=== PATIENT | male | born 1955 | race Caucasian/White ===

== ENCOUNTER 2024-02-21 16:50 | Emergency (ER) | payer OTHER, MEDICARE | END 2024-02-21 17:52 | disposition home or self-care (01) | LOC: JP.ED 16:50 | DX: S46.911A Strain of unspecified muscle, fascia and tendon at shoulder and upper arm level, right arm, initial encounter (principal); S46.912A Strain of unspecified muscle, fascia and tendon at shoulder and upper arm level, left arm, initial encounter; I10 Essential (primary) hypertension; E78.00 Pure hypercholesterolemia, unspecified; Z79.899 Other long term (current) drug therapy; X58.XXXA Exposure to other specified factors, initial encounter | CPT/HCPCS: 99283 ==